=== PATIENT | male | born 1985 | race Caucasian/White ===

== ENCOUNTER 2020-03-19 10:34 | Outpatient (CLI) | payer OTHER, SELFPAY ==
--- NOTE | ~2020-03-19 | US_ITS ---
EXAMINATION: US venous doppler [facility] DATE: 03/19/2020 11:48 INDICATION: Left lower limb pain, swelling and erythema TECHNIQUE: Grayscale ultrasound images without and with compression and Doppler ultrasound images of the left lower extremity veins were obtained. COMPARISON: None. FINDINGS: The visualized portions of left common femoral vein, profunda (deep) femoral vein, femoral vein, popl iteal vein, peroneal veins, posterior tibial veins, gastrocnemius vein and greater saphenous vein out flow are patent. Thrombosed noncompressible superficial vein extending from the mid thigh to the mid calf likely a varix which is contiguous with the left greater saphenous vein which is patent and comp ressible above the level of the mid thigh. IMPRESSION: 1. No deep venous thrombosis in the left lower limb. 2. Thrombosed superficial varix extending from the mid thigh to the mid calf. Reviewed, dictated and finalized at location A.
== END 2020-03-19 10:35 | disposition home or self-care (01) ==
PROVIDERS: PCP Internal Medicine; Visit Provider Internal Medicine
DX: M79.89 Other specified soft tissue disorders (principal); M79.605 Pain in left leg
CPT/HCPCS: 93971

== ENCOUNTER 2020-08-03 12:18 | Outpatient (CLI) | payer OTHER, BC, SELFPAY ==
--- NOTE | ~2020-08-03 | XR_ITS ---
EXAMINATION: XR ankle LT min 3V DATE: 08/03/2020 12:53 INDICATION: Acute left ankle arthritis. TECHNIQUE: Anteroposterior, oblique, mortise, and lateral views of the left ankle were obtained. COMPARISON: None. FINDINGS: Alignment is normal. No acute fracture. Profiled joint spaces are relatively preserved. No left ankle joint effusion. Small plantar calcaneal spur. Diffuse soft tissue swelling about the left ankle. IMPRESSION: 1. Relatively preserved joint space at the left ankle and visualized mid and hindfoot. No acute osseo us abnormality. Reviewed, dictated and finalized at location A. IMPRESSION: 1. Relatively preserved joint space at the left ankle and visualized mid and hi ndfoot. No acute osseous abnormality.
[2020-08-03 12:35] LABS: Basophils Absolute Auto 0.06 K/mm3 (0.00-0.10); Basophils Percent Auto 0.6 % (0.0-1.0); Eosinophils Absolute Auto 0.37 K/mm3 (0.02-0.50); Eosinophils Percent Auto 3.4 % (1.0-6.0); Hematocrit 45.2 % (40.0-54.0); Immature Granulocyte Percent A 0.9 % (0.0-0.0); Lymphocytes Absolute Auto 2.89 K/mm3 (1.10-4.50); Lymphocytes Percent Auto 26.7 % (18.0-42.0); Mean Corpuscular HGB Conc 33.2 g/dL (32.0-36.0); Mean Corpuscular Hemoglobin 30.8 pg (27.0-31.0); Mean Corpuscular Volume 92.8 fL (78.0-102.0); Mean Platelet Volume 10.3 fl (8.7-11.0); Monocytes Absolute Auto 1.06 K/mm3 (0.10-0.90); Monocytes Percent Auto 9.8 % (2.0-11.0); Neutrophils Absolute Auto 6.4 K/mm3 (1.7-7.2); Neutrophils Percent Auto 58.6 % (50.0-70.0); Platelet Count Result 190 K/mm3 (150-420); Red Blood Count 4.87 M/mm3 (4.70-6.10); Red Cell Distribution Width 12.1 % (11.6-14.4); White Blood Count 10.8 K/mm3 (4.8-10.8)
[2020-08-03 13:46] LABS: Alanine Aminotransferase 43 U/L (16-63); Albumin Level 3.9 g/dL (3.4-5.0); Alkaline Phosphatase 76 U/L (46-116); Anion Gap 9 mmol/L (8-16); Aspartate Amino Transferase 19 U/L (15-37); Bilirubin,Total 0.4 mg/dL (0.00-1.00); Blood Urea Nitrogen 11 mg/dL (7-18); CRP 1.7 mg/dL (0.0-0.9); Calcium 9.2 mg/dL (8.5-10.1); Carbon Dioxide 30 mmol/L (21-32); Chloride 101 mmol/L (98-108); Estimated Glomerular Filt Rate > 60; Glucose 129 mg/dL (70-99); Osmolality Calculated 291 mOsm/kg (285-295); Potassium 4.4 mmol/L (3.5-5.1); Sodium 140 mmol/L (136-145); Total Protein 7.9 g/dL (6.4-8.2); Uric Acid 8.5 mg/dL (3.5-7.2)
[2020-08-06 10:37] LABS: Anti Cyclic Citrullinated Pept <16 Units (<20)
== END 2020-08-03 12:19 | disposition home or self-care (01) ==
LOC: CHSLAB 12:22
PROVIDERS: PCP Internal Medicine; Visit Provider Internal Medicine
DX: M13.872 Other specified arthritis, left ankle and foot (principal)
CPT/HCPCS: 36415; 73610; 80053; 84550; 85025; 86140; 86200

== ENCOUNTER 2021-11-06 18:14 | Emergency (ER) | payer BC, SELFPAY ==
--- NOTE | ~2021-11-06 | XR_ITS ---
EXAMINATION: XR chest 2V 11/06/2021 18:51 INDICATION: Cough PROCEDURE: 2 view chest COMPARISON: No prior studies for comparison. FINDINGS: The lungs are clear. The cardiomediastinal silhouette is within normal limits. There are no pleural effusions. There is no pneumothorax suspected. IMPRESSION: 1: NO ACUTE CARDIOPULMONARY DISEASE. Reviewed, dictated and finalized at location A. [employer]
--- NOTE | 2021-11-06 18:15 | ED.GENADULT ---
HPI - General Adult General Chief complaint: Upper Respiratory Infection Stated complaint: Cough/Congestion Time Seen by Provider: 11/06/21 18:15 Source: patient Mode of arrival: ambulatory Limitations: no limitations History of Present Illness HPI narrative: 28-year-old male patient presents to the [facility] with complaints of a cough for a week and half with runny nose and congestion. Denies fevers, body aches or chills. Patient states he is not vaccinated for influenza or Covid. Patient states he has been taking some [id number] Mucinex which she does not feel like is helping much. Related Data Allergies Allergy/AdvReac Type Severity Reaction Status Date / Time Penicillins Allergy Unknown rash Verified 11/06/21 18:35 amoxicillin Allergy Rash Verified 11/06/21 18:35 Review of Systems Review of Systems: CONSTITUTIONAL: Denies fever, chills, or sweats. EYES: Denies visual changes, redness, or discharge. ENT: Positive rhinorrhea, congestion, denies sore throat, or otalgia. CARDIOVASCULAR: Denies chest pain, palpitations, or edema. RESPIRATORY: Positive cough, denies dyspnea. GASTROINTESTINAL: Denies abdominal pain, nausea, vomiting, or diarrhea. GENITOURINARY: Denies dysuria or hematuria. SKIN: Denies rash or itching. MUSCULOSKELETAL: Denies back pain, joint pain, or myalgia. NEUROLOGIC: Denies headache, numbness, or weakness. PSYCHIATRIC: Denies anxiety or depression. [facility] Past Medical History Medical History (Updated 11/06/21 @ 19:00 by RENEA Huber) BMI 40.0-44.9, adult Elevated liver function tests Gout Hyperlipidemia Low testosterone in male Pre-diabetes Tarsal tunnel syndrome Family History Family History Father Hypertension Gout Mother No problems noted. Sibling No problems noted. Social History Social History Smoking status: Never smoker Second hand tobacco smoke exposure: No Alcohol intake: current Drinks per week: 4 Substance use: never Substance use type: does not use Additional occupation/education comments: [employer] Gender identity (if verbalized by the patient): Male Comments At the time of my signature I agree with nursing past medical history, surgical, social, and family history. There is no relevant family history pertinent to the presenting complaint. Exam Narrative: GENERAL: Well-appearing, well-nourished, and in no acute distress. HEAD: Normocephalic, atraumatic. EYES: PERRLA and EOMI. ENT: Nares with erythema and edema noted bilaterally no active rhinorrhea or epistaxis. Mucous membranes moist. Posterior pharynx with erythema, tonsil enlargement, no exudates or lesions present NECK: Supple. No lymphadenopathy CHEST: Patient has decreased lung sounds noted to the right lower lobe on auscultation no respiratory distress. HEART: Regular rate and rhythm. No murmur heard. Normal peripheral pulses. ABDOMEN: Soft, nontender, nondistended, normal active bowel sounds. EXTREMITIES: Normal range of motion. No edema. SKIN: Warm, dry, no rash. NEURO: No focal deficits. Alert and oriented x3. Course Reevaluation(s) Reevaluation #1: Reevaluated patient notified him that his rapid Covid is negative today as well as his x-ray is negative for any evidence of pneumonia. Patient states that his symptoms do feel little bit better after the breathing treatment. Continues to have a little bit of decreased lung sounds noted to the left lower lobe on auscultation after treatment. Discussed with patient we will discharge him home with a daily steroid as well as an inhaler and Tessalon Perles for the cough. Discussed with patient if he has continuing worsening symptoms he should follow-up with his primary doctor. Patient verbalized understanding denies any other questions or concerns at this time. Date: 11/06/21 Time: 19:13 Vital Signs Vital signs: V
[2021-11-06 18:20] VITALS: BP 171/89; PULSE 87; RESP 16; TEMP 37.7; O2SAT 98
[2021-11-06 18:35] VITALS: BP 171/89; PULSE 87; RESP 16; TEMP 37.7; O2SAT 98
[2021-11-06] MEDS: IPRATROPIUM BR 0.02% INH SOLN 0.5 MG/2.5 ML VIAL INHALATION (18:50)
[2021-11-06] MEDS: ALBUTEROL SULFATE NEB 2.5 MG/3 ML INH INHALATION (18:50)
[2021-11-06 19:08] VITALS: RESP 16; O2SAT 99
== END 2021-11-06 19:23 | disposition home or self-care (01) ==
PROVIDERS: Emergency Provider Nurse Practitioner Family
DX: J40 Bronchitis, not specified as acute or chronic (principal); Z20.822 Contact with and (suspected) exposure to COVID-19; M10.9 Gout, unspecified; E78.5 Hyperlipidemia, unspecified; R73.03 Prediabetes
CPT/HCPCS: 71046; 87426; 94640; 99213; C9803; G0463

== ENCOUNTER 2025-08-05 12:23 | Outpatient (CLI) | payer BC, SELFPAY ==
--- NOTE | ~2025-08-05 | XR_ITS ---
XR thoracolumbar Indication: M54.9 - Dorsalgia; RT SIDED LBP Comparison: None Findings: The vertebral heights are intact. No fracture or subluxation. The disc heights are intact. Soft tissues unremarkable Impression: No acute abnormality. Reviewed, dictated and finalized at location A. Impression: No acute abnormality.
== END 2025-08-05 12:24 | disposition home or self-care (01) ==
LOC: MICIMG 12:26
PROVIDERS: PCP Family Medicine
DX: M54.9 Dorsalgia, unspecified (principal)
CPT/HCPCS: 72080